=== PATIENT | female | born 1950 | race African-American/Black ===

== ENCOUNTER 2017-03-07 00:25 | Emergency (ER) | payer SELFPAY ==
[~2017-03-07] VITALS: Ht 167.6 cm; Wt 72.5 kg
[2017-03-07 00:27] VITALS: BP 239/114; PULSE 89; RESP 16; TEMP 98.6; O2SAT 97
--- NOTE | 2017-03-07 01:26 | PD ---
HPI Chief Complaint: Injury Time Seen by Provider: 01:24 Travel History International Travel<30 days: No Contact w/Intl Traveler<30days: No Traveled to known affect area: No History of Present Illness HPI 67-year-old female patient presents to the ER today for 2 weeks' history of right middle finger swelling that started on its own. She denies any injuries. She states that has been worsening in the last week, was seen at an urgent care clinic last week and was given medications for pain. She denies any fevers or any other issues. Modifying Factors: None Associated Signs & Symptoms: Swelling in the right middle finger that started on its own for 2 weeks Risk Factors: None PFSH Past Medical History Cardiovascular Problems: Yes (HTN) Diabetes: Yes Social History Tobacco Use: No Allergies-Medications (Allergen,Severity, Reaction): Coded Allergies: No Known Drug Allergies (Verified Allergy, Unknown, 03/07/17) Reported Meds & Prescriptions Reported Meds & Active Scripts Active Reported Amlodipine (Amlodipine Besylate) 10 Mg Tab 10 Mg PO DAILY Novolin 70-30 Inj (Insulin Human Isoph/Insulin Regular) 1,000 Unit/10 Ml Vial 30 Units SQ ONCE Januvia (Sitagliptin Phosphate) 100 Mg Tab 100 Mg PO DAILY Aspirin Low Dose (Aspirin) 81 Mg Chew 81 Mg CHEW DAILY Losartan (Losartan Potassium) 25 Mg Tab 10 Mg PO DAILY Review of Systems Except as stated in HPI: all other systems reviewed are Neg Physical Exam Narrative GENERAL: Well-nourished, well-developed elderly -[place]in[place] female patient in mild distress. Awake and oriented 3. SKIN: Focused skin assessment warm/dry. HEAD: Normocephalic. EYES: No scleral icterus. No injection or drainage. NECK: Supple, trachea midline. No JVD or lymphadenopathy. CARDIOVASCULAR: Regular rate and rhythm without murmurs, gallops, or rubs. RESPIRATORY: Breath sounds equal bilaterally. No accessory muscle use. GASTROINTESTINAL: Abdomen soft, non-tender, nondistended. Right hand: There is notable edema, fluctuance and discoloration of the nail in the right middle finger involving mostly the distal phalanx area. Very tender to palpation. MUSCULOSKELETAL: No cyanosis, or edema. BACK: Nontender without obvious deformity. No CVA tenderness. Data Data Last Documented VS Vital Signs Date Time Temp Pulse Resp B/P (MAP) Pulse Ox O2 Delivery O2 Flow Rate FiO2 03/07/17 00:27 98.6 89 16 239/114 (155) 97 Room Air Orders Orders Finger ([id number]) (03/07/17 01:24) Lidocaine 1% Inj (50 Ml) (Xylocaine 1% I (03/07/17 02:30) Tetanus/Diphtheria Tox Adult (Tetanus/Di (03/07/17 02:30) Lidocaine 2% Inj (Xylocaine 2% Inj) (03/07/17 03:30) Bupivacaine Pf 0.5% Inj (Marcaine Pf 0.5 (03/07/17 03:30) MDM Medical Decision Making Medical Screen Exam Complete: Yes Emergency Medical Condition: Yes Medical Record Reviewed: Yes Differential Diagnosis Paronychia versus felon versus subungual hematoma versus underlying fracture Narrative Course X-ray did not show any signs of underlying osteomyelitis or fractures. I&D was done in the ER by my PA, please see PA note. My plan would be to release her with further antibiotic by mouth and follow-up with primary care physician. Return for any worsening in pain or new symptoms as needed. The plan has been discussed with the patient and family and they state understanding. Diagnosis Primary Impression: Paronychia of finger Med/Other Pt SpecificInfo: Prescription(s) given Scripts Sulfamethoxazole-Trimethoprim (Bactrim DS) 800-160 Mg Tab 1 TAB PO BID for Infection, #14 TAB 0 Refills Prov: Suad Ball MD 03/07/17 Ibuprofen (Ibuprofen) 600 Mg Tab 600 MG PO Q6H Y for Pain/Inflammation, #20 TAB 0 Refills Prov: Suad Ball MD 03/07/17 Disposition: 01 DISCHARGE HOME Condition: Stable Suad Ball MD Mar 07, 2017 01:26
[2017-03-07] MEDS ORDERED: NOVO7030P2 SQ ×2 (01:28→04:05)
[2017-03-07] MEDS ORDERED: ASPI81CH6 CHEW (01:28)
[2017-03-07] MEDS ORDERED: LOSA25TA PO (01:28)
[2017-03-07] MEDS ORDERED: AMLO10TA2 PO (01:28)
[2017-03-07] MEDS ORDERED: SITA1TAB2 PO ×2 (01:28→04:04)
--- NOTE | 2017-03-07 01:51 | RADRPT ---
EXAM DATE/TIME: 03/07/2017 01:33 [facility] COMPARISON: No previous studies available for comparison. INDICATIONS : Trauma to third digit of right hand. MEDICAL HISTORY : Diabetes mellitus type II. Hypertension SURGICAL HISTORY : Hysterectomy. ENCOUNTER: Initial ACUITY: 1 week PAIN SCORE: 8/10 LOCATION: Right upper extremity hand, third digit, PIP to terminal tuft. FINDINGS: No fracture is seen. There is soft tissue swelling at the distal aspect of the third digit. There katie ears to be some air in the region of the nail base seen on the lateral view. CONCLUSION: Soft tissue swelling and suspected air in the superficial volar soft tissues. Shaw Salcido MD on March 07, 2017 at 1:48 Board Certified Radiologist. This report was verified electronically.
[2017-03-07] MEDS ORDERED: LIDOCAINE HCL 1% 50 ML VIAL INFIL ONE (02:30)
[2017-03-07] MEDS ORDERED: TETANUS/DIPHTHERIA TOXOID ADULT 0.5 ML VIAL IM ONE (02:30)
[2017-03-07] MEDS ORDERED: LIDOCAINE HCL 2% 50 ML VIAL INFIL ONE (03:30)
[2017-03-07] MEDS ORDERED: BUPIVACAINE HCL PF 0.5% 10 ML VIAL INFIL ONE (03:30)
[2017-03-07] MEDS ORDERED: IBUP-232 PO (03:55)
[2017-03-07] MEDS ORDERED: BACT800T5 PO (03:55)
--- NOTE | 2017-03-19 12:09 | PD ---
Physical Exam Date Seen by Provider: Mar 22, 2017 Time Seen by Provider: 07:24 Narrative I was asked by Dr. Eubanks to perform a I&D of the paronychia on this patient's right index finger. Please see my procedure note. Data Data Orders Orders Finger ([id number]) (03/07/17 01:24) Lidocaine 1% Inj (50 Ml) (Xylocaine 1% I (03/07/17 02:30) Tetanus/Diphtheria Tox Adult (Tetanus/Di (03/07/17 02:30) Lidocaine 2% Inj (Xylocaine 2% Inj) (03/07/17 03:30) Bupivacaine Pf 0.5% Inj (Marcaine Pf 0.5 (03/07/17 03:30) Ed Discharge Order (03/07/17 03:53) [facility] Medical Record Reviewed: Yes Supervised Visit with KAI: Yes Procedures Procedure Narrative After the risks and benefits were discussed the following procedure was performed: INCISION AND DRAINAGE OF ABSCESS: The area was prepped and was sterilely draped. Digital block of 1% Xylocaine with a total number 3 mL was used to anesthetize the area. The area was properly anesthetized. A number 11 scalpel was used to make a 0.4-cm incision across the area of the abscess. Cultures were obtained. The abscess was drained an irrigated with normal saline. Sterile dressing applied. Diagnosis Primary Impression: Paronychia of finger Patient Instructions: General Instructions Departure Forms: Tests/Procedures Scripts Insulin Human Isophane-Regular 70-30 Inj (Novolin 70-30 Inj) 1,000 Unit/10 Ml Vial 30 UNITS SQ ONCE for Blood Sugar Management for 30 Days, ML 0 Refills Prov: Suad Ball MD 03/07/17 Sitagliptin (Januvia) 100 Mg Tab 100 MG PO DAILY for Blood Sugar Management, #30 TAB 0 Refills Prov: Suad Ball MD 03/07/17 Sulfamethoxazole-Trimethoprim (Bactrim DS) 800-160 Mg Tab 1 TAB PO BID for Infection, #14 TAB 0 Refills Prov: Suad Ball MD 03/07/17 Ibuprofen (Ibuprofen) 600 Mg Tab 600 MG PO Q6H Y for Pain/Inflammation, #20 TAB 0 Refills Prov: Suad Ball MD 03/07/17 Disposition: 01 DISCHARGE HOME Condition: Stable Eric Broderick Mar 19, 2017 12:09
== END 2017-03-07 04:06 | disposition home or self-care (01) ==
LOC: NEPC 00:25
DX: L03.011 Cellulitis of right finger (principal); I10 Essential (primary) hypertension; E11.9 Type 2 diabetes mellitus without complications
CPT/HCPCS: 26010; 73140; 90471; 90714